=== PATIENT | male | born 1975 | race Two or more races ===

== ENCOUNTER 2021-10-31 07:48 | Inpatient (IN) | payer OTHER ==
[~2021-10-31] VITALS: Ht 175.3 cm; Wt 131.1 kg
--- NOTE | 2021-10-31 07:51 | NUR ---
To ER bed 10, from home c/o midsternal chest pain non radiating since last night. Aaox3, breathing even and non labored, connected to monitor, awaiting md dean
[2021-10-31] MEDS ORDERED: ASPIRIN 325 MG TABLET ONE (08:26)
[2021-10-31] MEDS ORDERED: ASPIRIN 81 MG TAB.CHEW PO ONE (08:30)
[2021-10-31 08:40] LABS: BASOPHILS # (AUTO) 0.1 K/uL (0.0-0.2); BASOPHILS % (AUTO) 0.7 % (0.0-2.0); EOSINOPHILS % (AUTO) 0.7 % (0.0-6.0); HEMATOCRIT 49 % (39-51); HEMOGLOBIN 16.8 g/dL (13.5-17.5); LYMPHOCYTES # (AUTO) 1.4 K/uL (0.8-4.8); LYMPHOCYTES % (AUTO) 9.4 % (20.0-44.0); MEAN CORPUSCULAR HGB CONC 35 g/dl (31.0-36.0); MEAN CORPUSCULAR VOLUME 85 fL (80-96); MONOCYTES # (AUTO) 1.6 K/uL (0.1-1.30); MONOCYTES % (AUTO) 10.6 % (2.0-12.0); NEUTROPHILS # (AUTO) 11.6 K/uL (1.8-8.9); NEUTROPHILS % (AUTO) 78.6 % (43.0-81.0); PLATELET COUNT (AUTO) 281 K/uL (150-450); RED BLOOD CELL COUNT(AUTO) 5.71 MIL/uL (4.5-6.0); WHITE BLOOD COUNT (AUTO) 14.8 K/uL (4.3-11.0)
[2021-10-31 08:59] LABS: CALCIUM, SERUM 9.2 mg/dL (8.5-10.1); CARBON DIOXIDE 26 mmol/L (21-32); CHLORIDE 101 mmol/L (98-107); CREATININE 0.9 mg/dL (0.6-1.3); GLUCOSE 121 mg/dL (74-106); POTASSIUM 3.3 mmol/L (3.5-5.1); SODIUM SERUM 136 mmol/L (136-145); UREA NITROGEN, BLOOD 21 mg/dL (7-18)
[2021-10-31 09:17] LABS: ALANINE AMINOTRANSFERASE 29 U/L (12-78); ALBUMIN 4.1 g/dL (3.4-5.0); ALKALINE PHOSPHATASE 100 U/L (46-116); ASPARTATE AMINOTRANSFERASE 14 U/L (15-37); BILIRUBIN,DIRECT 0.2 mg/dL (0.0-0.2); BILIRUBIN,TOTAL 0.7 mg/dL (0.2-1.0); TOTAL PROTEIN, SERUM 8.8 g/dL (6.4-8.2)
[2021-10-31] MEDS ORDERED: AMLO-213 PO (09:25)
--- NOTE | 2021-10-31 09:29 | NUR ---
COVID SWAB DONE AND SENT TO LAB
--- NOTE | 2021-10-31 10:30 | NUR ---
MOVE SHEET SUBMITTED.
--- NOTE | 2021-10-31 10:58 | NUR ---
BED 304-2 PER NURSING SUP. ADMITTING NOTIFIED, NURSE NOTIFIED.
--- NOTE | 2021-10-31 11:00 | NUR ---
BED 304-1, CORRECTED BY NURSING SUP.
--- NOTE | 2021-10-31 11:11 | NUR ---
REPORT GIVEN TO GIA BERG FOR FRANCESCO
--- NOTE | 2021-10-31 11:30 | NUR ---
SERVICE CENTER MANAGER OPENING NOTES RECEIVED PATIENT FROM ER . PATIENT IS ALERT AND ORIENTED TIMES 4. NO PAIN NOTED. NO SOB NOTED. NO DISTRESS NOTED. ABLE TO MAKE NEEDS KNOWN. IV ACCESS LAC g # 18 INTACT AND PATENT. ALL NEEDS ATTENDED. ID BAND ON, TELE MONITOR READING SR. SKIN INTACT. ALL SAFETY MEASURES IN PLACE. CALL LIGHT AND TABLE IN EASY REACH. BED ALARM ON. SIDE RAILS UP TIMES 2. WILL CONTINUE TO MONITOR.
--- NOTE | 2021-10-31 11:33 | NUR ---
TRANSFERRED TO BED 304 IN STABLE CONDITION
[2021-10-31] MEDS ORDERED: ACETAMINOPHEN 325 MG TABLET PO PRN (12:00)
[2021-10-31] MEDS ORDERED: MAG HYDROX/AL HYDROX/SIMETH 30 ML UDC PO PRN (12:00)
[2021-10-31] MEDS ORDERED: ONDANSETRON HCL/PF 4 MG/2 ML VIAL IVP PRN (12:00)
[2021-10-31] MEDS ORDERED: MORPHINE SULFATE INJ 2 MG/ML DISP.SYRIN IV PRN (12:00)
[2021-10-31] MEDS ORDERED: NITROGLYCERIN 0.4 MG/TAB BOTTLE SL PRN (12:00)
[2021-10-31 14:00] VITALS: BP 138/94
[2021-10-31 16:02] VITALS: BP 129/87
[2021-10-31] MEDS ORDERED: IBUPROFEN 800 MG TABLET PO SCH (18:30)
[2021-10-31] MEDS: IBUPROFEN 400 MG TABLET PO SCH (18:38)
--- NOTE | 2021-10-31 18:47 | NUR ---
NURSING TEACHER CLOSING NOTES PATIENT IS ALERT AND ORIENTED TIMES 4. NO PAIN NOTED. NO SOB NOTED. NO DISTRESS NOTED. ABLE TO MAKE NEEDS KNOWN. IV ACCESS LAC g # 18 INTACT AND PATENT. ALL NEEDS ATTENDED. ALL DUE MEDS GIVEN.ID BAND ON, TELE MONITOR READING SR. SKIN INTACT. ALL SAFETY MEASURES IN PLACE. CALL LIGHT AND TABLE IN EASY REACH. BED ALARM ON. SIDE RAILS UP TIMES 2. WILL ENDORSE FOR FRANCESCO..
--- NOTE | 2021-10-31 19:30 | NUR ---
PAN PULLER NOTES SR-94 ON TELE MONITOR,ON BED A/O X4,BREATHING REGULAR,NOT IN ANY FORM OF DISTRESS,COMMENTED CHEST PAIN IMPROVED,ASKING WHEN HE GONNA GO HOME.SALINE LOCK LEFT AC INTACT AND PATENT.VISITOR AT BEDSIDE.CALL LIGHT IN REACH,NEEDS ANTICIPATED.
[2021-10-31 20:00] VITALS: BP 122/89
[2021-10-31] MEDS ORDERED: MAGNESIUM HYDROXIDE 30 ML UDC PO PRN (22:00)
[2021-10-31] MEDS ORDERED: SIMVASTATIN 10 MG TABLET PO SCH (22:00)
[2021-11-01] VITALS: BP 127/88
[2021-11-01 04:00] VITALS: BP 103/66
[2021-11-01 05:00] VITALS: BP 103/66
[2021-11-01 05:59] LABS: BASOPHILS % (AUTO) 0.4 % (0.0-2.0); HEMATOCRIT 45 % (39-51); HEMOGLOBIN 15.5 g/dL (13.5-17.5); LYMPHOCYTES # (AUTO) 1.9 K/uL (0.8-4.8); LYMPHOCYTES % (AUTO) 18.3 % (20.0-44.0); MEAN CORPUSCULAR HGB CONC 34 g/dl (31.0-36.0); MEAN CORPUSCULAR VOLUME 86 fL (80-96); MONOCYTES # (AUTO) 1.3 K/uL (0.1-1.30); MONOCYTES % (AUTO) 12.8 % (2.0-12.0); NEUTROPHILS # (AUTO) 6.8 K/uL (1.8-8.9); NEUTROPHILS % (AUTO) 65.5 % (43.0-81.0); PLATELET COUNT (AUTO) 246 K/uL (150-450); RED BLOOD CELL COUNT(AUTO) 5.27 MIL/uL (4.5-6.0); WHITE BLOOD COUNT (AUTO) 10.3 K/uL (4.3-11.0)
[2021-11-01 06:08] LABS: CALCIUM, SERUM 8.5 mg/dL (8.5-10.1); PHOSPHORUS 3.5 mg/dL (2.5-4.9); POTASSIUM 3.6 mmol/L (3.5-5.1)
[2021-11-01 06:25] LABS: MAGNESIUM 2.5 mg/dL (1.8-2.4)
[2021-11-01 06:30] LABS: THYROID STIMULATING HORMONE 2.254 uIU/mL (0.358-3.74)
--- NOTE | 2021-11-01 07:05 | NUR ---
ENVIRONMENTAL REMEDIATION CONSULTANT NOTES FAIRLY RESTED AT NIGHT.DENIES CHEST PAIN.SR ON TELE MONITOR.POSSIBLE D/C TODAY FROM [facility].ENDORSE TO DAY NURSE FOR FRANCESCO.
[2021-11-01] MEDS ORDERED: PANTOPRAZOLE 40 MG TABLET.DR PO SCH (07:30)
--- NOTE | 2021-11-01 07:30 | NUR ---
RN OPENING NOTES RECEIVED PATIENT IN BED AWAKE, NO SIGNS OF ACUTE DISTRESS NOTED. A/O X4. DENIES ANY PAIN OR DISCOMFORT AT THIS TIME. ON ROOM AIR, TOLERATING WELL, NO SOB NOTED, BREATHING EVEN AND UNLABORED. PATIENT'S IV ACCESS NOTED OUT, PER PATIENT IT WAS DISLODGED, REFUSED REINSERTION AT THIS TIME. SAFETY MEASURE IN PLACE. BED IN LOWEST AND LOCKED POSITION, SIDE RAILS UP X2, CALL LIGHT PLACED WITHIN EASY REACH. WILL CONTINUE TO MONITOR PATIENT.
[2021-11-01 08:00] VITALS: BP 115/78
[2021-11-01] MEDS: IBUPROFEN 400 MG TABLET PO SCH ×2 (08:26→12:11)
[2021-11-01] MEDS ORDERED: AMLODIPINE BESYLATE 10 MG TABLET PO SCH (09:00)
[2021-11-01] MEDS ORDERED: ASPIRIN EC 81 MG TABLET.DR PO SCH (09:00)
[2021-11-01] MEDS ORDERED: IBUP800T54 PO (10:34)
--- NOTE | 2021-11-01 10:43 | NUR ---
RN NOTE NEW PERIPHERAL LINE INSERTED ON LEFT AC #18G, WITH GOOD BLOOD RETURN, COVERED WITH TRANSPARENT DRESSING.
--- NOTE | 2021-11-01 10:45 | NUR ---
RN NOTE PATIENT PICKED UP VIA BED FOR [facility].
[2021-11-01] MEDS ORDERED: CT SWABBABLE VALVE TRANS SET 1 EA INFUS.SET MC ONE (10:49)
[2021-11-01] MEDS ORDERED: IV NS 0.9% 250 ML IV ONE (10:49)
[2021-11-01] MEDS ORDERED: IOHEXOL-350 100 ML VIAL IV ONE (10:49)
[2021-11-01] MEDS ORDERED: NITROGLYCERIN 0.4 MG/TAB BOTTLE ONE (10:49)
[2021-11-01] MEDS ORDERED: METOPROLOL TARTRATE INJ 5 MG/5 ML AMPUL ONE (11:00)
[2021-11-01 12:00] VITALS: BP 126/75
--- NOTE | 2021-11-01 15:11 | NUR ---
THERAPY ADMINISTRATIVE ASSISTANT NOTE PATIENT DISCHARGED HOME IN STABLE CONDITION. PATIENT A/O X4, VERBALLY RESPONSIVE, ABLE TO MAKE NEEDS KNOWN. VITAL SIGNS TAKEN, STABLE. ALL BELONGINGS ACCOUNTED FOR, FORM SIGNED BY PATIENT. IV ACCESS ON LEFT AC REMOVED, NO BLEEDING NOTED. PRESSURE DRESSING APPLIED TO SITE. EXITCARE FOLDER GIVEN TO PATIENT. HEALTH TEACHINGS AND DISCHARGE INSTRUCTIONS PROVIDED, WITH VERBALIZATION OF UNDERSTANDING. PATIENT PICKED UP BY ROMELIA, LEFT UNIT @1505. CN AWARE OF DISCHARGE.
== END 2021-11-01 15:00 | disposition home or self-care (01) | DRG 190 ==
LOC: ER 08:00 → TELE 11:11
DX: I21.4 Non-ST elevation (NSTEMI) myocardial infarction (principal); I30.9 Acute pericarditis, unspecified; E66.9 Obesity, unspecified; I10 Essential (primary) hypertension; J98.11 Atelectasis; Z68.41 Body mass index [BMI] 40.0-44.9, adult; Z20.822 Contact with and (suspected) exposure to COVID-19
CPT/HCPCS: 36415; 71045-TC; 75574; 80048-TC; 80061-TC; 80076-TC; 83735-TC; 83880; 84100-TC; 84443-TC; 84484-TC; 85025-TC; 87081-TC; 93307-TC; C9803; G0378; J3490; J7050; Q9967